=== PATIENT | male | born 1965 | race Caucasian/White ===

== ENCOUNTER 2019-10-20 03:51 | Emergency (ER) | payer BC, SELFPAY ==
--- NOTE | 2019-10-20 10:12 | CT ---
PRELIMINARY REPORT/[facility]/AFTER HOURS PROCEDURE EXAM: CT Cervical Spine Without Intravenous Contrast. CLINICAL HISTORY: 53-year-old male intoxicated walking downstairs with girlfriend who witnessed him missing a step fall ing forward striking the stair rail tumbling down the remaining 3-4 steps with positive loss of consc iousness TECHNIQUE: Axial computed tomography images of the cervical spine without intravenous contrast. Sagittal and cor onal reformations performed. COMPARISON: CT - CT BRAIN WO CON - 10/20/2019 04:21 AM CDT FINDINGS: BONES: No acute fracture or focal osseous lesion. Bony alignment is anatomic. DISCS / DEGENERATIVE CHANGES: Moderate degenerative disc height loss, with posterior disc osteophyte complex and uncovertebral arth rosis at C5-C6, contributing to mild to moderate osseous neural foraminal stenosis. No significant c entral spinal canal stenosis. The remaining disc spaces appear largely preserved. No significant fa cet arthrosis. SOFT TISSUES: No prevertebral soft tissue swelling. No apical pneumothorax. Unremarkable thyroid. No cervical mas s or adenopathy. IMPRESSION: No acute cervical spine abnormality. Cervical spondylosis, notably at C5-C6. ELECTRONICALLY SIGNED BY: Dajuan Centeno MD Oct 20, 2019 4:47:31 AM CDT This report is intended for review by the ordering physician only, in accordance of law. If you recei ve this report in error, please call [facility] at [phone]. FINAL REPORT CT CERVICAL SPINE: I agree with the preliminary report provided. No definite acute fracture or subluxation is evident. T here is moderate multilevel cervical spondylosis, most pronounced at C5-C6. CODE QA POS: ANDREE
--- NOTE | 2019-10-20 10:13 | CT ---
PRELIMINARY REPORT/[facility]/AFTER HOURS PROCEDURE EXAM: CT Head Without Intravenous Contrast. CLINICAL HISTORY: 53-year-old male intoxicated walking downstairs with girlfriend who witnessed him m issing a step falling forward striking the stair rail tumbling down the remaining 3-4 steps with posi tive loss of consciousness TECHNIQUE: Axial computed tomography images of the head/brain without intravenous contrast. COMPARISON: None provided. FINDINGS: BRAIN: No acute intraparenchymal hemorrhage. No mass lesion. No CT evidence for acute territorial infarct. N o midline shift or extra-axial collection. VENTRICLES: Normal size of the ventricles, without evidence of obstructive hydrocephalus. ORBITS: The orbits are unremarkable. SINUSES AND MASTOIDS: Mild mucosal thickening of multiple ethmoid sinuses. No air-fluid levels. The mastoid air cells are clear. SOFT TISSUES: No significant facial or scalp soft tissue swelling evident. No radiopaque foreign body is seen. BONES: No acute skull fracture. IMPRESSION: No acute intracranial abnormality. ELECTRONICALLY SIGNED BY: Dajuan Centeno MD Oct 20, 2019 4:41:23 AM CDT This report is intended for review by the ordering physician only, in accordance of law. If you recei ve this report in error, please call [facility] at [phone]. FINAL REPORT I agree with the preliminary report provided. No acute intracranial abnormality demonstrated. No definite depressed or displaced skull fracture is evident. There is mild paranasal sinus disease within the ethmoid air cells. No acute infarct, hemorr theo or hydrocephalus is present. No midline shift is evident. CODE QA POS: ANDREE
== END 2019-10-20 05:45 | disposition home or self-care (01) ==
LOC: ERS 03:51
DX: S06.9X9A Unspecified intracranial injury with loss of consciousness of unspecified duration, initial encounter (principal); S01.01XA Laceration without foreign body of scalp, initial encounter; I10 Essential (primary) hypertension; F10.129 Alcohol abuse with intoxication, unspecified; W10.9XXA Fall (on) (from) unspecified stairs and steps, initial encounter
CPT/HCPCS: 12002; 70450; 72125